=== PATIENT | female | born 1965 | race African-American/Black ===

== ENCOUNTER 2024-08-09 02:26 | Inpatient (IN) | payer MEDICAID ==
[~2024-08-09] VITALS: Ht 175.3 cm; Wt 79.8 kg
[2024-08-09] MEDS ORDERED: AZITHROMYCIN 500MG/250ML 250 ML IV ONE (03:30)
[2024-08-09 04:04] LABS: CHLORIDE 103 mEq/L (98-107); POTASSIUM 3.6 mEq/L (3.5-5.1); SODIUM 137 mEq/L (136-145)
[2024-08-09 04:05] LABS: CARBON DIOXIDE 22 mEq/L (21-32)
[2024-08-09 04:06] LABS: BASOPHILS % 0.3 % (0.0-2.0); CALCIUM 9.3 mg/dL (8.7-10.4); DIFFERENTIAL COMMENT 0; EOSINOPHILS % 0.2 % (0.0-5.0); HEMATOCRIT. 44.2 % (36.0-48.0); HEMOGLOBIN. 14.6 g/dL (12.0-16.0); MEAN CORPUSCULAR HEMOGLOBIN 25.3 pg (28.0-32.0); MEAN CORPUSCULAR HGB CONC 33.1 g/dL (31.0-37.0); MEAN CORPUSCULAR VOLUME 76.3 fL (81.0-99.0); MEAN PLATELET VOLUME 8.3 fl (7.4-10.4); MONOCYTES % 8.2 % (2.0-8.0); NEUTROPHILS % 81.3 % (40.0-76.0); PLATELET 409 x1000/uL (130-400); RED BLOOD CELL COUNT 5.79 mill/uL (4.2-5.4); RED CELL DISTRIBUTION WIDTH 15.3 % (11.6-14.6); WHITE BLOOD COUNT 15.4 x1000/uL (4.5-11.0)
[2024-08-09 04:10] LABS: CREATININE 0.8 mg/dL (0.6-1.0); GLUCOSE 122 mg/dL (70-105); UREA NITROGEN BLOOD 10 mg/dL (9-23)
[2024-08-09] MEDS: CEFTRIAXONE 1GM/50ML 50 ML IV ONE (05:12)
[2024-08-09] MEDS: AZITHROMYCIN 500MG/250ML 250 ML IV NR (06:27)
[2024-08-09 15:44] VITALS: BP 130/92; PULSE 109; RESP 22; TEMP 36.9184
[2024-08-09 20:00] VITALS: BP 139/85; PULSE 80; RESP 18; TEMP 36.61404; O2SAT 94
[2024-08-09] MEDS ORDERED: IBUPROFEN 400MG TABLET PO PRN (21:00)
[2024-08-09] MEDS ORDERED: ACETAMINOPHEN 325MG TABLET PO PRN (21:00)
[2024-08-09] MEDS ORDERED: DIPHENHYDRAMINE 50MG/ML VIAL IV PRN (21:00)
[2024-08-09] MEDS ORDERED: MAGNESIUM/ALUMINUM HYDROXIDE/SIMETHICONE 30ML UDC PO PRN (21:00)
[2024-08-09] MEDS ORDERED: ONDANSETRON HCL 4MG/2ML INJ IV PRN (21:00)
[2024-08-09] MEDS ORDERED: IPRATROPIUM/ALBUTEROL 0.5-3(2.5)MG/3ML NEB HHN PRN (21:00)
[2024-08-09] MEDS ORDERED: NALOXONE HCL 0.4MG/ML VIAL IV PRN (23:15)
[2024-08-09] MEDS: GUAIFENESIN 600MG ER TABLET PO SCH (23:27)
[2024-08-09] MEDS: ZOLPIDEM TARTRATE 5MG TABLET PO PRN (23:27)
[2024-08-09] MEDS: HYDROCODONE/ACETAMINOPHEN 5/325MG TABLET PO PRN (23:29)
[2024-08-09] MEDS: SODIUM CHLORIDE 0.9% 3ML FLUSH IVF SCH (23:30)
[2024-08-10] VITALS (9 sets, daily range): BP systolic 128–144; BP diastolic 68–99; PULSE 76–95; RESP 17–22; TEMP 36.22512–36.61404; O2SAT 95–100
[2024-08-10] MEDS: CEFTRIAXONE 1GM/50ML 50 ML IV SCH (06:00)
[2024-08-10] MEDS ORDERED: AZITHROMYCIN 500 MG in DEXT 5% WATER 250 ML IV SCH (07:00)
[2024-08-10] MEDS: AZITHROMYCIN 500MG/250ML 250 ML IV SCH (08:00)
[2024-08-10 09:05] LABS: *AMPHETAMINES SCREEN URINE NEGATIVE (NEGATIVE); *BARBITURATES SCREEN URINE NEGATIVE (NEGATIVE); *BENZODIAZEPINES SCREEN URINE NEGATIVE (NEGATIVE); *COCAINE SCREEN URINE PRESUMPTIVE POSITIVE (NEGATIVE); METHADONE URINE SCREEN NEGATIVE (NEGATIVE); OPIATES URINE SCREEN PRESUMPTIVE POSITIVE (NEGATIVE); PHENCYCLIDINE URINE SCREEN NEGATIVE (NEGATIVE)
[2024-08-10 09:06] LABS: CANNABINOID URINE SCREEN PRESUMPTIVE POSITIVE (NEGATIVE); ECSTASY MDMA SCREEN URINE NEGATIVE (NEGATIVE)
[2024-08-10] MEDS: FAMOTIDINE 20MG TABLET PO SCH (09:22)
[2024-08-10] MEDS: IPRATROPIUM/ALBUTEROL 0.5-3(2.5)MG/3ML NEB HHN SCH (15:10)
[2024-08-10] MEDS: PROMETHAZINE/DEXTROMETHORPHAN 6.25-15MG/5ML PO PRN (15:29)
[2024-08-11] VITALS: BP 142/95; PULSE 99; RESP 19; TEMP 36.28068; O2SAT 97
[2024-08-11 04:00] VITALS: BP 169/108; PULSE 94; RESP 19; TEMP 36.114; O2SAT 96
[2024-08-11] MEDS ORDERED: TRAMADOL 50MG TABLET PO PRN (05:00)
[2024-08-11] MEDS ORDERED: POLYVINYL ALCOHOL OPHTH DROPS 15ML LEFTEYE PRN (05:00)
[2024-08-11] MEDS: CLONIDINE 0.1MG TABLET PO PRN (05:16)
[2024-08-11 08:00] VITALS: BP 129/85; PULSE 89; RESP 18; TEMP 36.50292; O2SAT 99
[2024-08-11] MEDS: ACETAMINOPHEN 325MG TABLET PO PRN (08:54)
[2024-08-11 09:34] LABS: BASOPHILS % 0.3 % (0.0-2.0); DIFFERENTIAL COMMENT 0; EOSINOPHILS % 0.5 % (0.0-5.0); HEMOGLOBIN. 13.9 g/dL (12.0-16.0); LYMPHOCYTES % 24.6 % (20.0-50.0); MEAN CORPUSCULAR HGB CONC 32.4 g/dL (31.0-37.0); MEAN CORPUSCULAR VOLUME 77.4 fL (81.0-99.0); MEAN PLATELET VOLUME 7.6 fl (7.4-10.4); MONOCYTES % 9.4 % (2.0-8.0); NEUTROPHILS % 65.2 % (40.0-76.0); PLATELET 456 x1000/uL (130-400); RED BLOOD CELL COUNT 5.56 mill/uL (4.2-5.4); RED CELL DISTRIBUTION WIDTH 15.6 % (11.6-14.6); WHITE BLOOD COUNT 10.3 x1000/uL (4.5-11.0)
[2024-08-11 10:00] LABS: CHLORIDE 103 mEq/L (98-107); POTASSIUM 4.9 mEq/L (3.5-5.1); SODIUM 136 mEq/L (136-145)
[2024-08-11 10:01] LABS: CALCIUM 9.6 mg/dL (8.7-10.4); CARBON DIOXIDE 27 mEq/L (21-32)
[2024-08-11 10:06] LABS: CREATININE 0.7 mg/dL (0.6-1.0); GLUCOSE 103 mg/dL (70-105)
[2024-08-11 10:07] LABS: UREA NITROGEN BLOOD 12 mg/dL (9-23)
[2024-08-11] MEDS: AMLODIPINE 10MG TABLET PO SCH (12:12)
[2024-08-11 16:00] VITALS: BP 148/98; PULSE 60; RESP 17; TEMP 36.3918; O2SAT 97
[2024-08-12 08:00] VITALS: BP 150/95; PULSE 81; RESP 19; TEMP 36.16956; O2SAT 99
[2024-08-12 11:09] VITALS: BP 139/75; PULSE 81; TEMP 98.5; O2SAT 99
[2024-08-12 12:00] VITALS: BP 134/97; PULSE 87; RESP 20; TEMP 36.114; TEMP 36.11400; O2SAT 98
== END 2024-08-12 12:45 | disposition home or self-care (01) | DRG 139 ==
LOC: ER 02:26 → EDBEDREQ 03:33 → 6EST 05:06 → EDBEDREQ 05:08 → EDBEDREQSVC 05:08
PROVIDERS: ADMIT Internal Medicine; ATTEND Internal Medicine
DX: J18.9 Pneumonia, unspecified organism (principal); F12.90 Cannabis use, unspecified, uncomplicated; F41.1 Generalized anxiety disorder; F14.90 Cocaine use, unspecified, uncomplicated; Z20.822 Contact with and (suspected) exposure to COVID-19; I10 Essential (primary) hypertension; Z85.3 Personal history of malignant neoplasm of breast; Z90.710 Acquired absence of both cervix and uterus
CPT/HCPCS: 36415; 71046; 80048; 80305; 83735; 84100; 85025; 87426; 87804; 94070; 94640; 94664; 99285; A4606; J0456; J0696; J7060